=== PATIENT | female | born 1950 | race Caucasian/White ===

== ENCOUNTER 2020-12-17 10:25 | Emergency (ER) | payer MEDICARE, OTHER, SELFPAY ==
[2020-12-17 10:40] VITALS: BP 135/81; PULSE 70; RESP 18; TEMP 36.7; O2SAT 99
--- NOTE | 2020-12-17 10:52 | ED.EXTPRO ---
HPI - Extremity Problem General Chief complaint: Skin/Abscess/Foreign Body Stated complaint: Rt forearm Time Seen by Provider: 12/17/20 10:45 Source: patient and RN notes reviewed Mode of arrival: ambulatory Limitations: no limitations History of Present Illness HPI Narrative: 70-year-old female presents with concern for yellowjacket sting to her right forearm. Reports on Friday she was stung multiple times along the right forearm and right hand. Reports she has been using Benadryl, ice to all of the areas. Reports all of the areas are resolving except one area on her dorsal forearm that is red, hard, swollen, tender. She denies swollen tongue, swollen lips, trouble breathing, fever, body aches. MD Complaint: extremity pain Related Data Home Medications Medication Instructions Recorded Confirmed cholecalciferol (vitamin D3) 25 1,000 unit PO DAILY 05/04/19 mcg (1,000 unit) tablet multivitamin 1 tablet PO DAILY 05/04/19 Allergies Allergy/AdvReac Type Severity Reaction Status Date / Time Cephalosporins Allergy Mild Rash Unverified 12/17/20 10:49 clindamycin Allergy Mild Rash Unverified 12/17/20 10:49 Sulfa (Sulfonamide Allergy Mild Rash Unverified 12/17/20 10:49 Antibiotics) adhesive Allergy Unknown Unknown Verified 12/17/20 10:49 adhesive tape Allergy Unknown Rash Verified 12/17/20 10:49 amoxicillin Allergy Unknown Unknown Verified 12/17/20 10:49 ampicillin Allergy Unknown Unknown Verified 12/17/20 10:49 cephalexin Allergy Unknown Unknown Verified 12/17/20 10:49 ciprofloxacin Allergy Unknown Unknown Verified 12/17/20 10:49 Penicillins Allergy Unknown Unknown Verified 12/17/20 10:49 sulfur dioxide Allergy Unknown Unknown Verified 12/17/20 10:49 CIPROFLOXACIN HCL Allergy Mild Unknown Uncoded 12/17/20 10:49 Review of Systems Review of Systems: CONSTITUTIONAL: Denies malaise, chills, sweats, or fever. ENT: Denies swollen lips, swollen tongue CARDIOVASCULAR: Denies chest pain, palpitations, or edema. RESPIRATORY: Denies dyspnea. SKIN: Reports warm, red, tender area on her right forearm MUSCULOSKELETAL: Denies myalgia. All systems reviewed & are unremarkable except as noted in HPI and below PMFSH Past Medical History Medical History (Updated 12/17/20 @ 10:55 by Radha Murphy NP) Vitamin D deficiency disease Family History Family History Mother Hypertension Father Family history of diabetes mellitus in first degree relative, Onset Age: 76 Social History Social History Smoking status: Never smoker Alcohol intake: never Comments At time of signature, agree with nursing past medical, surgical, social and family history. There is no relevant family history pertinent to the presenting complaint Exam Narrative: GENERAL: Well-appearing, well-nourished, and in no acute distress. HEAD: Normocephalic, atraumatic. EYES: PERRLA, conjunctivae clear ENT: Mucous membranes moist. NECK: Supple. No lymphadenopathy CHEST: Clear to auscultation. No respiratory distress. HEART: Regular rate and rhythm. SKIN: Warm, dry. Patches of erythema and edema 8 cm patch of erythema with induration and warmth noted to the right forearm, no fluctuant areas noted. NEURO: Alert and oriented x3. PSYCH: Normal mood and affect Course Course Emergency Course: Patient is aware of diagnosis, understands and agrees to treatment plan. Anticipatory guidance given. Patient agrees to follow-up as directed and is aware of reasons to seek care at the emergency department. Portions of this record may have been created with voice recognition software Vital Signs Vital signs: Vital Signs Temperature 98.1 F 12/17/20 10:40 Pulse Rate 70 12/17/20 10:40 Respiratory Rate 18 12/17/20 10:40 Blood Pressure 135/81 12/17/20 10:40 Pulse Oximetry 99 12/17/20 10:40 Temperature 98.1 F 12/17/20 10:40
== END 2020-12-17 11:02 | disposition home or self-care (01) ==
PROVIDERS: Emergency Provider Nurse Practitioner; PCP Emergency Medicine
DX: L03.113 Cellulitis of right upper limb (principal); E55.9 Vitamin D deficiency, unspecified
CPT/HCPCS: 99213; G0463

== ENCOUNTER 2021-07-03 07:23 | Outpatient (CLI) | payer MEDICARE, OTHER, SELFPAY ==
--- NOTE | ~2021-07-03 | MM_ITS ---
EXAMINATION: MM screening [facility] BI w [facility] HISTORY: Screening TECHNIQUE: Craniocaudal and mediolateral oblique 3-D tomosynthesis images were obtained and synthetic 2-D images were generated. CAD analysis was submitted and interpreted. COMPARISON: Comparison to multiple prior studies sequentially, with oldest reviewed study dated 02/16. BREAST PARENCHYMAL COMPOSITION: The breasts are almost entirely fatty. FINDINGS: There is no evidence of suspicious mass, calcification, or architectural distortion to sugg est malignancy in either breast. There has been no suspicious interval change. IMPRESSION: 1. No mammographic evidence of malignancy. 2. Recommend routine screening mammography in one year. BI-RADS Category 1: Negative Reviewed, dictated and finalized at location A. [employer]IVER
== END 2021-07-03 07:24 | disposition home or self-care (01) ==
PROVIDERS: PCP Family Medicine; Visit Provider Family Medicine
DX: Z12.31 Encounter for screening mammogram for malignant neoplasm of breast (principal)
CPT/HCPCS: 77063; 77067

== ENCOUNTER 2021-09-04 08:02 | Outpatient (CLI) | payer MEDICARE, OTHER, SELFPAY ==
--- NOTE | ~2021-09-04 | DEXA_ITS ---
Bone Density Report Name: DIONICIO NAVARRO Age: 71 Sex: Female Ethnicity: White Date of : 1950 Indication: postmenopausal; screening for osteoporosis; height loss; prior fracture; hysterectomy; Referring Provider: NICK COWAN Study: Bone densitometry was performed. Exam Date: September 04, 2021 Accession number: [id number] Bone Density: Region BMD T-score Z-score Classification AP Spine(L1-L4) 1.018 -0.3 2.0 Normal Femoral Neck (Left) 0.692 -1.4 0.6 Osteopenia Total Hip (Left) 0.796 -1.2 0.5 Osteopenia Femoral Neck (Right) 0.771 -0.7 1.3 Normal Total Hip (Right) 0.883 -0.5 1.2 Normal Total Hip Mean 0.840 -0.9 0.9 Normal World Health Organization criteria for BMD impression classify patients as: Normal (T-score at or above -1.0), Osteopenia (T-score between -1.0 and -2.5), or Osteoporosis (T-score at or below -2.5). 10-year Fracture Risk(1): Major Osteoporotic Fracture 16% Hip Fracture 2.4% Reported Risk Factors: [place] (), Neck BMD=0.692, BMI=31.2, previous fracture (1) FRAX(R) Version 3.08. Fracture probability calculated for an untreated patient. Fracture probability may be lower if the patient has received treatment. Previous Exams: Region Exam Age BMD T-score BMD Change BMD Change Date g/cm2 vs Baseline vs Previous AP Spine(L1-L4) 09/04/2021 71 1.018 -0.3 -0.008(-0.8%)# -0.008(-0.8%)# 02/09/2013 62 1.026 -0.2 Total Hip(Left) 09/04/2021 71 0.796 -1.2 -0.071(-8.2%)# -0.036(-4.3%)* 01/16/2018 67 0.833 -0.9 -0.035(-4.0%)# -0.016(-1.9%) 03/03/2015 64 0.849 -0.8 -0.018(-2.1%)# -0.018(-2.1%)# 02/09/2013 62 0.867 -0.6 Total Hip(Right) 09/04/2021 71 0.883 -0.5 -0.062(-6.6%)# -0.045(-4.8%)* 01/16/2018 67 0.927 -0.1 -0.018(-1.9%)# 0.005(0.6%) 03/03/2015 64 0.922 -0.2 -0.023(-2.4%)# -0.023(-2.4%)# 02/09/2013 62 0.945 0.0 *Denotes significance at 95% confidence level, LSC for AP Spine = 0.022 g/cm2, LSC for Total Hip = 0.027 g/cm2 # Denotes dissimilar scan types or analysis methods Clinical Information Provided by Patient: Has had a low trauma fracture Has used the following medications: Vitamin D Has the following medical conditions: Hysterectomy Patient maximum height was 62 Menopause Age: 47 Drinks caffeinated beverages Onset of menses at age 10 Number of children 2 Missed period for more than 6 months in a row Impression: The
== END 2021-09-04 08:03 | disposition home or self-care (01) ==
PROVIDERS: PCP Family Medicine; Visit Provider Family Medicine
DX: Z78.0 Asymptomatic menopausal state (principal); M85.852 Other specified disorders of bone density and structure, left thigh
CPT/HCPCS: 77080

== ENCOUNTER 2023-03-20 07:47 | Outpatient (CLI) | payer MEDICARE, OTHER, SELFPAY ==
--- NOTE | ~2023-03-20 | MM_ITS ---
EXAMINATION: MM screening [facility] BI w corrie HISTORY: Screening mammogram TECHNIQUE: Craniocaudal and mediolateral oblique 3-D tomosynthesis images were obtained and synthetic 2-D images were generated. CAD analysis was submitted and interpreted. COMPARISON: 07/03/2021, 04/23/2019, 01/16/2018 BREAST PARENCHYMAL COMPOSITION: There are scattered areas of fibroglandular density. FINDINGS: No suspicious mass, calcification, or architectural distortion are identified in either nicol ast to suggest malignancy. There has been no suspicious interval change. IMPRESSION: 1. No mammographic evidence of malignancy. 2. Recommend routine screening mammography in one year. BI-RADS Category 1: Negative Reviewed, dictated and finalized at location A.
== END 2023-03-20 07:48 | disposition home or self-care (01) ==
LOC: ANHIMG 07:49
PROVIDERS: PCP Family Medicine; Visit Provider Family Medicine
DX: Z12.31 Encounter for screening mammogram for malignant neoplasm of breast (principal)
CPT/HCPCS: 77063; 77067

== ENCOUNTER 2023-10-10 13:49 | Emergency (ER) | payer MEDICARE, OTHER, SELFPAY ==
--- NOTE | ~2023-10-10 | XR_ITS ---
EXAMINATION: XR ankle RT min 3V DATE: 10/10/2023 14:15 INDICATION: Right ankle injury and pain. TECHNIQUE: 4 views of right ankle were obtained. COMPARISON: Right ankle radiographs 07/02/2017 FINDINGS: Bone alignment is normal. No fracture. There is mild midfoot osteoarthritis. There is an en thesophyte at plantar aspect of calcaneal tuberosity. IMPRESSION: 1. No fracture. Reviewed, dictated and finalized at location A. IMPRESSION: 1. No fracture.
[2023-10-10 14:05] VITALS: BP 150/78; PULSE 78; RESP 20; TEMP 36.9; O2SAT 98
--- NOTE | 2023-10-10 14:22 | ED.LOWEXIN ---
HPI - Extremity Injury (Lower) General Chief Complaint: Extremity Injury, Lower Stated Complaint: rt ankle injury Time Seen by Provider: 10/10/23 14:10 Source: patient, family (Father) and RN notes reviewed Mode of arrival: ambulatory Limitations: no limitations History of Present Illness HPI Narrative: Patient presents today complaining of right lateral ankle pain. She fell 6 days ago at home on her deck. Currently rates her pain 5/10. She took some ibuprofen this morning and has been applying ice. Denies numbness or tingling. Related Data Home Medications Medication Instructions Recorded Confirmed cholecalciferol (vitamin D3) 25 1,000 unit PO DAILY 05/04/19 12/24/22 mcg (1,000 unit) tablet (Vitamin D3) multivitamin 1 tablet PO DAILY 05/04/19 12/24/22 Allergies Allergy/AdvReac Type Severity Reaction Status Date / Time Cephalosporins Allergy Mild Rash Verified 12/24/22 13:27 clindamycin Allergy Mild Rash Verified 12/24/22 13:27 Sulfa (Sulfonamide Allergy Mild Rash Verified 12/24/22 13:27 Antibiotics) adhesive tape Allergy Unknown Rash Verified 12/24/22 13:27 amoxicillin Allergy Unknown Unknown Verified 12/24/22 13:27 ampicillin Allergy Unknown Unknown Verified 12/24/22 13:27 cephalexin Allergy Unknown Unknown Verified 12/24/22 13:27 ciprofloxacin Allergy Unknown Unknown Verified 12/24/22 13:27 Penicillins Allergy Unknown Unknown Verified 12/24/22 13:27 sulfur dioxide Allergy Unknown Unknown Verified 12/24/22 13:27 CIPROFLOXACIN HCL Allergy Mild Unknown Uncoded 12/24/22 13:27 Review of Systems Review of Systems: CONSTITUTIONAL: Denies body aches, fever, chills, or sweats. EYES: Denies visual changes, redness, or discharge. ENT: Denies rhinorrhea, congestion, sore throat, or otalgia. CARDIOVASCULAR: Denies chest pain, palpitations, or edema. RESPIRATORY: Denies cough or dyspnea. GASTROINTESTINAL: Denies abdominal pain, nausea, vomiting, or diarrhea. GENITOURINARY: Denies dysuria or hematuria. SKIN: Denies rash, itching, or wounds. MUSCULOSKELETAL: Denies back pain, or myalgia.+ right ankle pain NEUROLOGIC: Denies headache, numbness, tingling, or weakness. PSYCH: Denies depression or anxiety. [facility] Past Medical History Medical History Hypothyroidism (acquired) Vitamin D deficiency disease Surgical History Surgical History Hx of hysterectomy S/P cholecystectomy S/P tonsillectomy Family History Family History Mother Hypertension Father Family history of diabetes mellitus in first degree relative, Onset Age: 76 Social History Social History Social History: Smoking status: Never smoker Second hand tobacco smoke exposure: No Alcohol intake: never Substance use: never Substance use type: does not use Lack of Transportation: No Lack of Food: Never True Current Housing: I Have Housing Concerned About Future Housing: No Difficulty Paying Gas/Electric Bills: No Difficulty Paying for Meds: No Currently Unemployed: YES Education: Decline to Answer Difficulty w/ Childcare or Family Care: No Living arrangements: with family Occupation/Education: retired Gender identity (if verbalized by the patient): Female Sexual Orientation (if Verbalized by the Patient): Straight or Heterosexual Comments At time of signature, I have reviewed and agree with nursing past medical, surgical, social and family history unless otherwise noted. Please see nursing chart for further information. There is no relevant family history pertinent to the presenting complaint Exam Narrative: GENERAL: Well-appearing, well-nourished, and in no acute distress. HEAD: Normocephalic, atraumatic. EYES: EOMI. No redness or drainage.
== END 2023-10-10 14:51 | disposition home or self-care (01) ==
PROVIDERS: Emergency Provider Nurse Practitioner; PCP Family Medicine
DX: S93.401A Sprain of unspecified ligament of right ankle, initial encounter (principal); W19.XXXA Unspecified fall, initial encounter; E03.9 Hypothyroidism, unspecified; E55.9 Vitamin D deficiency, unspecified
CPT/HCPCS: 73610; 99213; G0463

== ENCOUNTER 2024-03-31 12:08 | Outpatient (CLI) | payer MEDICARE, OTHER, SELFPAY ==
--- NOTE | ~2024-03-31 | DEXA_ITS ---
Bone Density Report Name: DIONICIO NAVARRO Age: 73 Sex: Female Ethnicity: White Date of : 1950 Indication: hyperparathyroidism; height loss; hysterectomy; Referring Provider: NICK COWAN Study: Bone densitometry was performed. Exam Date: March 31, 2024 Accession number: [id number] Bone Density: Region BMD T-score Z-score Classification AP Spine(L1-L4) 0.994 -0.5 2.0 Normal Femoral Neck (Left) 0.651 -1.8 0.3 Osteopenia Total Hip (Left) 0.770 -1.4 0.4 Osteopenia Femoral Neck (Right) 0.747 -0.9 1.2 Normal Total Hip (Right) 0.870 -0.6 1.2 Normal Total Hip Mean 0.820 -1.0 0.8 Normal World Health Organization criteria for BMD impression classify patients as: Normal (T-score at or above -1.0), Osteopenia (T-score between -1.0 and -2.5), or Osteoporosis (T-score at or below -2.5). 10-year Fracture Risk(1): Major Osteoporotic Fracture 12% Hip Fracture 2.7% Reported Risk Factors: [place] (), Neck BMD=0.651, BMI=30.7 (1) FRAX(R) Version 3.08. Fracture probability calculated for an untreated patient. Fracture probability may be lower if the patient has received treatment. Clinical Information Provided by Patient: Has used the following medications: Vitamin D Has the following medical conditions: Hyperparathyroidism, Hysterectomy Patient maximum height was 62 Menopause Age: 47 Drinks caffeinated beverages Onset of menses at age 11 Number of children 2 Missed period for more than 6 months in a row Impression: The patient has low bone mass, based on the Left Femoral Neck T-score. The patient has an estimated ten-year risk of hip fracture of 2.7% and an estimated ten-year risk of major fracture of 12%, based on the WHO FRAX algorithm. Discussion: BONE DENSITY IS LOW AT ONE OR MORE SKELETAL SITES. This patient's lowest T-score is low at one or more skeletal sites. It meets the World Health Organization's (WHO) criteria for ?low bone mass? (T-score between -1.0 and -2.5). The patient's 10-year risk of fracture as calculated by FRAX is less than the threshold where pharmacological therapy is recommended by the National Osteoporosis Foundation (NOF). However, all treatment decisions require clinical judgment and consideration of individual patient factors, including patient preferences, comorbidities, previous drug use, risk factors not captured in the FRAX model (e.g., frailty, falls, vitamin D deficiency, increased bone turnover, interval significant decline in bone density) and possible under or overestimation of fracture risk by FRAX. The patient should follow a healthful lifestyle (good nutrition with adequate calcium and vitamin D, and appropriate weight-bearing exercise). Follow-Up: Consider repeating this study in 2 to 3 years to reassess this patient's status, or sooner if there is some new clinical indication. Reported by: AARON on 03/31/2024 12:52:00 PM. Reviewed, dictated and finalized at location ARishi GRIDER
== END 2024-03-31 12:09 | disposition home or self-care (01) ==
LOC: ANHIMG 12:10
PROVIDERS: PCP Family Medicine; Visit Provider Family Medicine
DX: Z78.0 Asymptomatic menopausal state (principal); M85.852 Other specified disorders of bone density and structure, left thigh
CPT/HCPCS: 77080